=== PATIENT | male | born 1975 | race Caucasian/White ===

== ENCOUNTER 2024-03-01 06:43 | Day surgery (SDC) | payer OTHER ==
[~2024-03-01] VITALS: Ht 165.1 cm; Wt 68.2 kg
[2024-03-01] MEDS ORDERED: PROPOFOL 1% 20 ML VIAL IVP ONE (06:59)
[2024-03-01] MEDS ORDERED: LIDOCAINE/PF 2% 5 ML VIAL ONE (06:59)
[2024-03-01] MEDS: SODIUM CHLORIDE 0.9% 1,000 ML IV ONE (07:42)
== END 2024-03-01 09:55 | disposition home or self-care (01) ==
LOC: SURGERY 06:43
PROVIDERS: ATTEND Internal Medicine Gastroenterology
DX: Z12.11 Encounter for screening for malignant neoplasm of colon (principal); K57.30 Diverticulosis of large intestine without perforation or abscess without bleeding; K64.8 Other hemorrhoids; Z87.891 Personal history of nicotine dependence; Z79.899 Other long term (current) drug therapy; Z98.890 Other specified postprocedural states
CPT/HCPCS: 45378; J2704; J3490